=== PATIENT | male | born 1935 | race Two or more races ===

== ENCOUNTER 2018-04-14 13:48 | Inpatient (IN) | payer OTHER ==
[~2018-04-14] VITALS: Ht 175.3 cm; Wt 61.4 kg
[~2018-04-14 13:48] MED LIST: propofol 10mg/ml 20ml vial IV ONE
[2018-04-14] MEDS ORDERED: oxyCODONE/APAP 5-325mg tablet PO ONE (14:00)
[2018-04-14] MEDS ORDERED: LACT1CAP65 PO (14:04)
[2018-04-14] MEDS ORDERED: RIVA15TA PO (14:04)
[2018-04-14] MEDS ORDERED: CHOL500044 PO (14:04)
[2018-04-14] MEDS ORDERED: TAMS0.4C32 PO (14:04)
[2018-04-14] MEDS ORDERED: DUTA0.5C16 PO (14:04)
[2018-04-14] MEDS ORDERED: POTA10TA19 PO (14:04)
[2018-04-14 15:22] LABS: BASOPHILS % (AUTO) 0.1 % (0-1); EOSINOPHILS # (AUTO) 0.1 X10'3 (0-0.9); HEMATOCRIT 39.1 % (42.0-52.0); HEMOGLOBIN 13.2 g/dl (14.0-17.9); LYMPHOCYTES # (AUTO) 0.7 X10'3 (1.1-4.8); LYMPHOCYTES % (AUTO) 9.4 % (21-51); MEAN CORPUSCULAR HGB CONC 33.7 % (33.0-36.5); MEAN CORPUSCULAR VOLUME 89.1 FL (78-98); MEAN PLATELET VOLUME 7.5 FL (7.4-10.4); MONOCYTES # (AUTO) 0.4 X10'3 (0-0.9); MONOCYTES % (AUTO) 5.6 % (2-12); NEUTROPHILS # (AUTO) 5.9 X10'3 (1.8-7.7); NEUTROPHILS % (AUTO) 83.9 % (42-75); PLATELET COUNT 231 X10'3 (140-440); RED BLOOD COUNT 4.39 X10'6 (4.70-6.10); RED CELL DISTRIBUTION WIDTH 13.6 % (11.5-14.5); WHITE BLOOD COUNT 7.1 X10'3 (4.5-11.0)
[2018-04-14] MEDS ORDERED: magnesium hydroxide 30ml (MOM) UD suspension PO PRN (15:35)
[2018-04-14] MEDS ORDERED: potassium Cl 40MEQ/NS 500ml 500 ML IV PRN ×2 (15:35)
[2018-04-14] MEDS ORDERED: morphine 2 MG/ML inj. syringe IV PRN ×2 (15:35→15:40)
[2018-04-14] MEDS ORDERED: magnesium 4gm in 100ml NS 100 ML IV PRN (15:35)
[2018-04-14] MEDS ORDERED: mag hydrox/Alum hydrox/simeth 30ml oral suspension PO PRN (15:35)
[2018-04-14] MEDS ORDERED: magnesium Cl slow-release 64mg tablet PO PRN (15:35)
[2018-04-14] MEDS ORDERED: ondansetron/PF 4mg/2ml inj IV PRN (15:35)
[2018-04-14] MEDS ORDERED: magnesium 1gm/100ml D5W IVPB 100 ML IV PRN (15:35)
[2018-04-14] MEDS ORDERED: potassium Cl 20 mEq SR tablet PO PRN ×2 (15:35)
[2018-04-14] MEDS ORDERED: acetaminophen 325mg tablet PO PRN (15:35)
[2018-04-14 15:38] LABS: ALANINE AMINOTRANSFERASE 19 U/L (12-78); ALBUMIN 3.4 G/DL (3.4-5.0); ALBUMIN/GLOBULIN RATIO 0.9 (1.1-1.5); ALKALINE PHOSPHATASE 86 IU/L (46-116); ANION GAP 8 (8-16); ASPARTATE AMINO TRANSFERASE 16 U/L (10-37); BILIRUBIN,TOTAL 0.6 MG/DL (0.1-1.0); BLOOD UREA NITROGEN 16 MG/DL (7-18); BUN/CREATININE RATIO 14.7 (5.4-32.0); CALCIUM 8.6 MG/DL (8.5-10.1); CHLORIDE 105 MMOL/L (99-107); CREATININE 1.09 MG/DL (0.60-1.10); GLUCOSE 145 MG/DL (70-104); SODIUM 141 MMOL/L (135-145); TOTAL CARBON DIOXIDE 27.7 MMOL/L (24-32); TOTAL PROTEIN 7.3 G/DL (6.4-8.2); eGFR 65 ML/MIN
[2018-04-14 15:40] LABS: PARTIAL THROMBOPLASTIN TIME 26 SECONDS (22-32); PROTHROMBIN TIME 10.7 SECONDS (9.0-12.0)
[2018-04-14] MEDS: dextrose 5%-1/2 normal saline 1,000 ML IV SCH (15:48)
[2018-04-14 16:20] LABS: CLARITY,URINE CLEAR (Clear); COLOR,URINE YELLOW (Yellow); GLUCOSE, URINE NEGATIVE (Neg); KETONES,URINE NEGATIVE (Neg); LEUKOCYTE ESTERASE ,URINE NEGATIVE (Neg); NITRITES, URINE NEGATIVE (Neg); OCCULT BLOOD,URINE NEGATIVE (Neg); PROTEIN,URINE TRACE mg/dl (Neg)
[2018-04-14 16:22] LABS: UA COLLECTION TYPE VOIDED
[2018-04-14 16:42] LABS: BACTERIA,URINE FEW /HPF (Neg); RBC,URINE 0-2 /HPF (0-2); SQUAMOUS EPITHELIAL CELL,UR FEW /LPF (FEW); WBC,URINE 0-4 /HPF (0-4)
[2018-04-14 17:14] VITALS: BP 165/85
[2018-04-14 22:00] VITALS: BP 150/78
[2018-04-15] VITALS (18 sets, daily range): BP systolic 111–176; BP diastolic 53–90
[2018-04-15] MEDS: oxyCODONE/APAP 5-325mg tablet PO PRN ×3 (02:19→20:37)
[2018-04-15] MEDS: dextrose 5%-1/2 normal saline 1,000 ML IV SCH ×2 (04:06→18:12)
[2018-04-15] MEDS: K and/or MAG REPLACEMENT MC SCH (07:42)
[2018-04-15] MEDS ORDERED: ceFAZolin 1000mg inj ONE (07:57)
[2018-04-15] MEDS: tamsulosin 0.4mg capsule PO SCH (08:00)
[2018-04-15] MEDS: enoxaparin 40mg/0.4ml syringe SUBCUT SCH (08:00)
[2018-04-15] MEDS: vitamin D (cholecalciferol) 1,000 unit tablet PO SCH (08:00)
[2018-04-15] MEDS: potassium chloride 10mEq ER tablet PO SCH (08:00)
[2018-04-15] MEDS: lactobacillus rhamnosus 10,000 MMU CELLS/CAPSULE PO SCH (08:00)
[2018-04-15] MEDS ORDERED: dutasteride 0.5 MG capsule PO SCH (08:00)
[2018-04-15] MEDS: finasteride 5mg tablet PO SCH (08:00)
[2018-04-15 08:26] LABS: BASOPHILS # (AUTO) 0.1 X10'3 (0-0.2); BASOPHILS % (AUTO) 0.9 % (0-1); EOSINOPHILS % (AUTO) 0.2 % (0-6); HEMATOCRIT 39.7 % (42.0-52.0); HEMOGLOBIN 13.3 g/dl (14.0-17.9); LYMPHOCYTES # (AUTO) 1.3 X10'3 (1.1-4.8); LYMPHOCYTES % (AUTO) 17.3 % (21-51); MEAN CORPUSCULAR HGB CONC 33.6 % (33.0-36.5); MEAN CORPUSCULAR VOLUME 89.3 FL (78-98); MEAN PLATELET VOLUME 7.3 FL (7.4-10.4); MONOCYTES # (AUTO) 0.5 X10'3 (0-0.9); MONOCYTES % (AUTO) 7.2 % (2-12); NEUTROPHILS # (AUTO) 5.6 X10'3 (1.8-7.7); NEUTROPHILS % (AUTO) 74.4 % (42-75); PLATELET COUNT 223 X10'3 (140-440); RED BLOOD COUNT 4.44 X10'6 (4.70-6.10); RED CELL DISTRIBUTION WIDTH 13.5 % (11.5-14.5); WHITE BLOOD COUNT 7.6 X10'3 (4.5-11.0)
[2018-04-15 08:44] LABS: ALANINE AMINOTRANSFERASE 15 U/L (12-78); ALBUMIN 3.3 G/DL (3.4-5.0); ALBUMIN/GLOBULIN RATIO 0.8 (1.1-1.5); ALKALINE PHOSPHATASE 71 IU/L (46-116); ANION GAP 10 (8-16); ASPARTATE AMINO TRANSFERASE 17 U/L (10-37); BILIRUBIN,TOTAL 0.9 MG/DL (0.1-1.0); BLOOD UREA NITROGEN 8 MG/DL (7-18); BUN/CREATININE RATIO 9.1 (5.4-32.0); CALCIUM 8.5 MG/DL (8.5-10.1); CHLORIDE 104 MMOL/L (99-107); CREATININE 0.88 MG/DL (0.60-1.10); GLUCOSE 139 MG/DL (70-104); POTASSIUM 3.4 MMOL/L (3.5-5.1); SODIUM 140 MMOL/L (135-145); TOTAL CARBON DIOXIDE 26.1 MMOL/L (24-32); TOTAL PROTEIN 7.4 G/DL (6.4-8.2); eGFR 83 ML/MIN
[2018-04-15] MEDS ORDERED: BUPIVAcaine/dex-water/PF 7.5 mg/ml 2ml ampul ONE (10:02)
[2018-04-15] MEDS ORDERED: fentaNYL/PF 50MCG/1 ML 2ML syringe ONE (10:02)
[2018-04-15] MEDS ORDERED: midazolam 2 mg/2 ml injection ONE (10:02)
[2018-04-15] MEDS ORDERED: proCHLORperazine 10 MG/2 ml inj IV PRN (11:00)
[2018-04-15] MEDS ORDERED: morphine 4 MG/ML inj SYRINge IV PRN ×2 (11:00)
[2018-04-15] MEDS ORDERED: meperidine/PF 25mg/ml syringe IV PRN ×3 (11:00)
[2018-04-15] MEDS ORDERED: ringers solution, lacted 1,000 ML IV SCH (11:00)
[2018-04-15] MEDS ORDERED: ondansetron/PF 4mg/2ml inj IV PRN ×2 (11:00→11:50)
[2018-04-15] MEDS ORDERED: phenylephrine 10mg/ml inj. ONE (11:16)
[2018-04-15] MEDS ORDERED: diphenhydrAMINE 25mg capsule PO PRN ×2 (11:50)
[2018-04-15] MEDS ORDERED: bisacodyl 10mg suppository rectal RC PRN (11:50)
[2018-04-15] MEDS ORDERED: acetaminophen 325mg tablet PO PRN (11:50)
[2018-04-15] MEDS ORDERED: meperidine/PF 25mg/ml syringe IV ONE (11:50)
[2018-04-15] MEDS ORDERED: meperidine/PF 50mg/ml syringe IV ONE (11:50)
[2018-04-15] MEDS ORDERED: magnesium hydroxide 30ml (MOM) UD suspension PO PRN (11:50)
[2018-04-15] MEDS: gabapentin 300mg capsule PO SCH ×2 (12:51→20:39)
[2018-04-15] MEDS: acetaminophen 325mg tablet PO SCH ×2 (13:01→20:00)
[2018-04-15] MEDS: potassium cl 20mEq in 1/2 NS 1,000 ML IV SCH (14:30)
[2018-04-15] MEDS: ceFAZolin 1GM/D5W- ADD-VANTAGE 50 ML IV SCH (16:09)
[2018-04-15] MEDS ORDERED: vancomycin/NS 1 GM ADD-VANTAGE 250 ML IV SCH (20:00)
[2018-04-15] MEDS: sennosides 8.6mg tablet PO SCH (20:37)
[2018-04-16] MEDS: ceFAZolin 1GM/D5W- ADD-VANTAGE 50 ML IV SCH (00:55)
[2018-04-16] MEDS: potassium cl 20mEq in 1/2 NS 1,000 ML IV SCH ×3 (00:56→09:48)
[2018-04-16] MEDS: acetaminophen 325mg tablet PO SCH ×4 (02:00→20:02)
[2018-04-16] MEDS: oxyCODONE/APAP 5-325mg tablet PO PRN (05:25)
[2018-04-16 06:00] VITALS: BP 158/79
[2018-04-16 06:47] LABS: BASOPHILS % (AUTO) 0.1 % (0-1); EOSINOPHILS # (AUTO) 0.1 X10'3 (0-0.9); EOSINOPHILS % (AUTO) 1.5 % (0-6); HEMATOCRIT 40.1 % (42.0-52.0); HEMOGLOBIN 13.5 g/dl (14.0-17.9); MEAN CORPUSCULAR HEMOGLOBIN 29.8 PG (27.0-31.0); MEAN CORPUSCULAR HGB CONC 33.7 % (33.0-36.5); MEAN CORPUSCULAR VOLUME 88.4 FL (78-98); MEAN PLATELET VOLUME 7.4 FL (7.4-10.4); MONOCYTES # (AUTO) 0.7 X10'3 (0-0.9); MONOCYTES % (AUTO) 8.8 % (2-12); NEUTROPHILS # (AUTO) 6.2 X10'3 (1.8-7.7); NEUTROPHILS % (AUTO) 77.6 % (42-75); PLATELET COUNT 229 X10'3 (140-440); RED BLOOD COUNT 4.53 X10'6 (4.70-6.10); RED CELL DISTRIBUTION WIDTH 13.4 % (11.5-14.5)
[2018-04-16 06:52] LABS: ALANINE AMINOTRANSFERASE 17 U/L (12-78); ALBUMIN 3.1 G/DL (3.4-5.0); ALBUMIN/GLOBULIN RATIO 0.7 (1.1-1.5); ALKALINE PHOSPHATASE 74 IU/L (46-116); ANION GAP 7 (8-16); ASPARTATE AMINO TRANSFERASE 18 U/L (10-37); BLOOD UREA NITROGEN 9 MG/DL (7-18); BUN/CREATININE RATIO 8.8 (5.4-32.0); CALCIUM 8.5 MG/DL (8.5-10.1); CHLORIDE 102 MMOL/L (99-107); CREATININE 1.02 MG/DL (0.60-1.10); GLUCOSE 110 MG/DL (70-104); MAGNESIUM 1.9 MG/DL (1.5-2.4); POTASSIUM 4.1 MMOL/L (3.5-5.1); SODIUM 137 MMOL/L (135-145); TOTAL CARBON DIOXIDE 28.1 MMOL/L (24-32); TOTAL PROTEIN 7.5 G/DL (6.4-8.2); eGFR 70 ML/MIN
[2018-04-16] MEDS: dextrose 5%-1/2 normal saline 1,000 ML IV SCH ×2 (07:32→20:52)
[2018-04-16] MEDS: vitamin D (cholecalciferol) 1,000 unit tablet PO SCH (07:48)
[2018-04-16] MEDS: aspirin 325mg tablet PO SCH (07:49)
[2018-04-16] MEDS: tamsulosin 0.4mg capsule PO SCH (07:49)
[2018-04-16] MEDS: lactobacillus rhamnosus 10,000 MMU CELLS/CAPSULE PO SCH (07:49)
[2018-04-16] MEDS: finasteride 5mg tablet PO SCH (07:49)
[2018-04-16] MEDS: gabapentin 300mg capsule PO SCH ×3 (07:49→20:02)
[2018-04-16] MEDS: potassium chloride 10mEq ER tablet PO SCH (07:50)
[2018-04-16] MEDS: enoxaparin 40mg/0.4ml syringe SUBCUT SCH (07:51)
[2018-04-16] MEDS: K and/or MAG REPLACEMENT MC SCH (08:00)
[2018-04-16 10:00] VITALS: BP 104/63
[2018-04-16 18:00] VITALS: BP 112/58
[2018-04-16] MEDS: sennosides 8.6mg tablet PO SCH (20:02)
[2018-04-16] MEDS: celeCOXIB 100mg capsule PO SCH (20:02)
[2018-04-16 22:00] VITALS: BP 143/66
[2018-04-17] MEDS: acetaminophen 325mg tablet PO SCH ×2 (01:10→08:10)
[2018-04-17] MEDS: potassium cl 20mEq in 1/2 NS 1,000 ML IV SCH ×2 (01:12→03:50)
[2018-04-17] MEDS: oxyCODONE/APAP 5-325mg tablet PO PRN (05:18)
[2018-04-17 05:58] LABS: BASOPHILS % (AUTO) 0.1 % (0-1); EOSINOPHILS # (AUTO) 0.2 X10'3 (0-0.9); EOSINOPHILS % (AUTO) 2.8 % (0-6); HEMATOCRIT 36.2 % (42.0-52.0); LYMPHOCYTES # (AUTO) 1.3 X10'3 (1.1-4.8); LYMPHOCYTES % (AUTO) 17.4 % (21-51); MEAN CORPUSCULAR HGB CONC 33.2 % (33.0-36.5); MEAN CORPUSCULAR VOLUME 90.3 FL (78-98); MEAN PLATELET VOLUME 7.3 FL (7.4-10.4); MONOCYTES # (AUTO) 0.8 X10'3 (0-0.9); MONOCYTES % (AUTO) 9.9 % (2-12); NEUTROPHILS # (AUTO) 5.4 X10'3 (1.8-7.7); NEUTROPHILS % (AUTO) 69.8 % (42-75); PLATELET COUNT 218 X10'3 (140-440); RED BLOOD COUNT 4.01 X10'6 (4.70-6.10); RED CELL DISTRIBUTION WIDTH 13.9 % (11.5-14.5); WHITE BLOOD COUNT 7.7 X10'3 (4.5-11.0)
[2018-04-17 06:00] VITALS: BP 109/56
[2018-04-17 06:14] LABS: ALANINE AMINOTRANSFERASE 13 U/L (12-78); ALBUMIN 2.6 G/DL (3.4-5.0); ALBUMIN/GLOBULIN RATIO 0.7 (1.1-1.5); ALKALINE PHOSPHATASE 62 IU/L (46-116); ANION GAP 5 (8-16); ASPARTATE AMINO TRANSFERASE 18 U/L (10-37); BILIRUBIN,TOTAL 0.7 MG/DL (0.1-1.0); BLOOD UREA NITROGEN 23 MG/DL (7-18); BUN/CREATININE RATIO 17.6 (5.4-32.0); CALCIUM 8.4 MG/DL (8.5-10.1); CHLORIDE 107 MMOL/L (99-107); CREATININE 1.31 MG/DL (0.60-1.10); GLUCOSE 114 MG/DL (70-104); POTASSIUM 4.8 MMOL/L (3.5-5.1); SODIUM 141 MMOL/L (135-145); TOTAL CARBON DIOXIDE 29.3 MMOL/L (24-32); TOTAL PROTEIN 6.6 G/DL (6.4-8.2); eGFR 52 ML/MIN
[2018-04-17] MEDS: K and/or MAG REPLACEMENT MC SCH (06:48)
[2018-04-17] MEDS: vitamin D (cholecalciferol) 1,000 unit tablet PO SCH (08:09)
[2018-04-17] MEDS: celeCOXIB 100mg capsule PO SCH ×2 (08:09→20:16)
[2018-04-17] MEDS: lactobacillus rhamnosus 10,000 MMU CELLS/CAPSULE PO SCH (08:09)
[2018-04-17] MEDS: aspirin 325mg tablet PO SCH (08:09)
[2018-04-17] MEDS: gabapentin 300mg capsule PO SCH ×3 (08:09→20:16)
[2018-04-17] MEDS: potassium chloride 10mEq ER tablet PO SCH (08:10)
[2018-04-17] MEDS: finasteride 5mg tablet PO SCH (08:10)
[2018-04-17] MEDS: tamsulosin 0.4mg capsule PO SCH (08:10)
[2018-04-17] MEDS: enoxaparin 40mg/0.4ml syringe SUBCUT SCH (08:11)
[2018-04-17 11:00] VITALS: BP 136/63
[2018-04-17 19:31] VITALS: BP 112/59
[2018-04-17] MEDS: acetaminophen 325mg tablet PO PRN (20:16)
[2018-04-17] MEDS: sennosides 8.6mg tablet PO SCH (20:29)
[2018-04-17] MEDS ORDERED: rivaroxaban 15mg tablet PO SCH (21:00)
[2018-04-17 22:00] VITALS: BP 121/58
[2018-04-18] MEDS: acetaminophen 325mg tablet PO PRN ×4 (02:03→12:11)
[2018-04-18 06:00] VITALS: BP 124/61
[2018-04-18 06:57] LABS: BASOPHILS % (AUTO) 0.1 % (0-1); EOSINOPHILS # (AUTO) 0.3 X10'3 (0-0.9); EOSINOPHILS % (AUTO) 5.3 % (0-6); HEMATOCRIT 35.4 % (42.0-52.0); HEMOGLOBIN 11.9 g/dl (14.0-17.9); LYMPHOCYTES # (AUTO) 1.2 X10'3 (1.1-4.8); LYMPHOCYTES % (AUTO) 18.3 % (21-51); MEAN CORPUSCULAR HGB CONC 33.4 % (33.0-36.5); MEAN CORPUSCULAR VOLUME 89.7 FL (78-98); MEAN PLATELET VOLUME 7.3 FL (7.4-10.4); MONOCYTES # (AUTO) 0.6 X10'3 (0-0.9); MONOCYTES % (AUTO) 8.9 % (2-12); NEUTROPHILS # (AUTO) 4.4 X10'3 (1.8-7.7); NEUTROPHILS % (AUTO) 67.4 % (42-75); PLATELET COUNT 251 X10'3 (140-440); RED BLOOD COUNT 3.95 X10'6 (4.70-6.10); RED CELL DISTRIBUTION WIDTH 13.5 % (11.5-14.5); WHITE BLOOD COUNT 6.5 X10'3 (4.5-11.0)
[2018-04-18 07:19] LABS: ALANINE AMINOTRANSFERASE 15 U/L (12-78); ALBUMIN 2.4 G/DL (3.4-5.0); ALBUMIN/GLOBULIN RATIO 0.6 (1.1-1.5); ALKALINE PHOSPHATASE 71 IU/L (46-116); ANION GAP 6 (8-16); ASPARTATE AMINO TRANSFERASE 22 U/L (10-37); BILIRUBIN,TOTAL 0.5 MG/DL (0.1-1.0); BLOOD UREA NITROGEN 21 MG/DL (7-18); BUN/CREATININE RATIO 20.2 (5.4-32.0); CALCIUM 8.2 MG/DL (8.5-10.1); CHLORIDE 106 MMOL/L (99-107); CREATININE 1.04 MG/DL (0.60-1.10); GLUCOSE 105 MG/DL (70-104); MAGNESIUM 2.3 MG/DL (1.5-2.4); POTASSIUM 4.7 MMOL/L (3.5-5.1); SODIUM 140 MMOL/L (135-145); TOTAL CARBON DIOXIDE 27.9 MMOL/L (24-32); TOTAL PROTEIN 6.3 G/DL (6.4-8.2); eGFR 68 ML/MIN
[2018-04-18] MEDS: lactobacillus rhamnosus 10,000 MMU CELLS/CAPSULE PO SCH (08:35)
[2018-04-18] MEDS: potassium chloride 10mEq ER tablet PO SCH (08:35)
[2018-04-18] MEDS: gabapentin 300mg capsule PO SCH ×2 (08:35→12:03)
[2018-04-18] MEDS: celeCOXIB 100mg capsule PO SCH (08:35)
[2018-04-18] MEDS: tamsulosin 0.4mg capsule PO SCH (08:35)
[2018-04-18] MEDS: enoxaparin 40mg/0.4ml syringe SUBCUT SCH (08:37)
[2018-04-18] MEDS: aspirin 325mg tablet PO SCH (08:38)
[2018-04-18] MEDS: vitamin D (cholecalciferol) 1,000 unit tablet PO SCH (08:38)
[2018-04-18] MEDS: finasteride 5mg tablet PO SCH (08:41)
[2018-04-18] MEDS: K and/or MAG REPLACEMENT MC SCH (08:42)
[2018-04-18 10:00] VITALS: BP 113/49
[2018-04-18] MEDS ORDERED: acetaminophen 325mg tablet PO PRN (12:15)
== END 2018-04-18 12:45 | DRG 481 ==
LOC: ER 13:48 → ED HOLD 15:32 → ORTHO 4S 16:36
PROVIDERS: ADMIT Internal Medicine; ATTEND Orthopaedic Surgery
PROC: BQ101ZZ Fluoroscopy of Right Hip using Low Osmolar Contrast (ICD-10-PCS; 2018-04-15)
PROC: 0QS606Z Reposition Right Upper Femur with Intramedullary Internal Fixation Device, Open Approach (ICD-10-PCS; principal; 2018-04-15 10:09)
DX: S72.141A Displaced intertrochanteric fracture of right femur, initial encounter for closed fracture (principal); I69.351 Hemiplegia and hemiparesis following cerebral infarction affecting right dominant side; D62 Acute posthemorrhagic anemia; I10 Essential (primary) hypertension; W01.0XXA Fall on same level from slipping, tripping and stumbling without subsequent striking against object, initial encounter; N40.0 Benign prostatic hyperplasia without lower urinary tract symptoms; Z88.5 Allergy status to narcotic agent; Z88.2 Allergy status to sulfonamides; Z88.8 Allergy status to other drugs, medicaments and biological substances; Z79.899 Other long term (current) drug therapy; Y92.098 Other place in other non-institutional residence as the place of occurrence of the external cause; Y93.01 Activity, walking, marching and hiking; Y99.8 Other external cause status
CPT/HCPCS: 36415; 71045; 73502; 76001; 80053; 81001; 83735; 85025; 85610; 85730; 87070; 93005; 97110; 97116; 97161; 99285; A4615; A6258; A6449; A7000; C1758; J0690; J1650; J2250; J2270; J2370; J2405; J2704; J3010; J3370; J3490; J7120

== ENCOUNTER 2018-05-02 10:02 | Outpatient (CLI) | payer OTHER ==
[2018-05-02 09:59] VITALS: BP 119/69
[~2018-05-02 10:02] MED LIST changes: +CHOL500044 PO; +DUTA0.5C16 PO; +LACT1CAP65 PO; +POTA10TA19 PO; +RIVA15TA PO; +TAMS0.4C32 PO; -propofol 10mg/ml 20ml vial IV ONE
== END 2018-05-02 11:13 | disposition home or self-care (01) ==
LOC: ORTHO 10:02
PROVIDERS: ATTEND Nurse Practitioner Family
DX: S72.141A Displaced intertrochanteric fracture of right femur, initial encounter for closed fracture (principal); I10 Essential (primary) hypertension; Z79.899 Other long term (current) drug therapy; Z88.5 Allergy status to narcotic agent; Z88.2 Allergy status to sulfonamides; Z88.8 Allergy status to other drugs, medicaments and biological substances; Z86.73 Personal history of transient ischemic attack (TIA), and cerebral infarction without residual deficits; W18.30XA Fall on same level, unspecified, initial encounter; Y93.89 Activity, other specified; Y92.89 Other specified places as the place of occurrence of the external cause; Y99.8 Other external cause status
CPT/HCPCS: 99214

== ENCOUNTER 2018-05-23 10:18 | Outpatient (CLI) | payer OTHER | END 2018-05-23 11:17 | disposition home or self-care (01) | LOC: ORTHO 10:18 | PROVIDERS: ATTEND Nurse Practitioner Family | DX: S72.141D Displaced intertrochanteric fracture of right femur, subsequent encounter for closed fracture with routine healing (principal); I10 Essential (primary) hypertension; Z86.73 Personal history of transient ischemic attack (TIA), and cerebral infarction without residual deficits; Z88.5 Allergy status to narcotic agent; Z88.2 Allergy status to sulfonamides; Z88.8 Allergy status to other drugs, medicaments and biological substances; W19.XXXD Unspecified fall, subsequent encounter | CPT/HCPCS: 73552; 99213 ==

== ENCOUNTER 2018-08-29 13:38 | Outpatient (CLI) | payer OTHER ==
[2018-08-29 13:39] VITALS: BP 121/62
== END 2018-08-29 14:18 | disposition home or self-care (01) ==
LOC: ORTHO 13:38
PROVIDERS: ATTEND Nurse Practitioner Family
DX: S72.141D Displaced intertrochanteric fracture of right femur, subsequent encounter for closed fracture with routine healing (principal); I10 Essential (primary) hypertension; Z88.5 Allergy status to narcotic agent; Z88.8 Allergy status to other drugs, medicaments and biological substances; W19.XXXD Unspecified fall, subsequent encounter
CPT/HCPCS: 73502; 99212